=== PATIENT | female | born 1985 | race Caucasian/White ===

== ENCOUNTER → 2022-04-22 | Outpatient (CLI) | payer BC ==
[~2022-04-22] MED LIST: LEXAPRO 10MG10 MG PO; MOTRIN 800800 MG/TAB PO; PERCOCET 325 MG1 TA2 PO; PRENATAL1 TA1 PO; PRILOSEC 20MG20 MG PO; ZANTAC 150150 MG PO
== END ==
LOC: COL.VAS 08:34
DX: I77.9 Disorder of arteries and arterioles, unspecified (principal)